=== PATIENT | male | born 1965 | race Caucasian/White ===

== ENCOUNTER 2018-07-15 13:20 | Emergency (ER) | payer OTHER ==
[2018-07-15 13:20] VITALS: BMI 25.1
[2018-07-15 13:48] VITALS: BP 123/79; PULSE 79; RESP 16; TEMP 98; O2SAT 98
--- NOTE | 2018-07-15 14:13 | C.PDOC ---
History Of Present Illness 52-year-old male, presents to the emergency department with complaints of left knee pain that he gradually developed a few hours ago after suddenly twisting his knee. Pain is localized and worse with ambulation. Patient denies deformity, weakness, or any other associated symptoms. No other complaints at this time. Time Seen by Provider: 07/15/18 13:32 Chief Complaint (Nursing): Lower Extremity Problem/Injury History Per: Patient History/Exam Limitations: no limitations Past Medical History Reviewed: Historical Data, Nursing Documentation, Vital Signs Vital Signs: Last Vital Signs Temp 98 F 07/15/18 13:32 Pulse 79 07/15/18 13:32 Resp 16 07/15/18 13:32 BP 123/79 07/15/18 13:32 Pulse Ox 98 07/15/18 13:32 Family History: States: No Known Family Hx - Social History Hx Alcohol Use: No Hx Substance Use: No Review Of Systems Constitutional: Negative for: Fever, Chills Gastrointestinal: Negative for: Nausea, Vomiting Musculoskeletal: Positive for: Leg Pain Neurological: Negative for: Weakness, Numbness Physical Exam - Physical Exam Appears: Well, Non-toxic, No Acute Distress Skin: Warm, Dry, No Rash, No Ecchymosis Extremity: Normal ROM (mild discomfort Left knee flexion. no neurovascular deficits.), No Calf Tenderness, No Deformity, No Swelling, Other (tenderness over lateral and posterior aspect of left knee) Neurological/Psych: Oriented x3, Normal Speech, Normal Motor, Normal Sensation, Normal Reflexes ED Course And Treatment O2 Sat by Pulse Oximetry: 98 Pulse Ox Interpretation: Normal (RA) - Other Rad Left knee X-Ray: Interpreted by Me, Viewed By Me Interpretation: (-) acute fx or dislocation Progress Note: On re-eval, pt is afebrile, hemodynamicaly stable. Non-toxic. AMbulatory in ED with stable gait. Left knee: mild tenderness lateral aspect knee. no deformity, no skin changes. FAROM, no neurovascular deficits. Left Knee xray (-) acute fx. Left knee brace applied. Pt advised to f/u with Ortho in 2-3 days for re-eavl. return to ED if any new changes. Disposition Counseled Patient/Family Regarding: Studies Performed, Diagnosis, Need For Followup, Rx Given - Disposition Referrals: Dedrick Lieberman MD [Staff Provider] - Disposition: HOME/ ROUTINE Disposition Time: 14:02 Condition: STABLE Additional Instructions: RICE-rest, ice, compression, elevation take pain medication as need Follow up with Orthopedist in23- days for re-evaluation, MRI of left knee as need return to ED if any worsening or new changes. Prescriptions: traMADol [Ultram] 50 mg PO BID #7 tab Instructions: Knee Sprain (DC) Forms: [employer] (Tongan) - Clinical Impression Clinical Impression: Knee sprain - Scribe Statement The provider has reviewed the documentation as recorded by the Scribe (Mikaela Bonds) All medical record entries made by the Scribe were at my direction and personally dictated by me. I have reviewed the chart and agree that the record accurately reflects my personal performance of the history, physical exam, medical decision making, and the department course for this patient. I have also personally directed, reviewed, and agree with the discharge instructions and disposition.
--- NOTE | 2018-07-15 17:23 | RAD ---
Date of service: 07/15/2018 PROCEDURE: Left Knee Radiographs. HISTORY: Pain. COMPARISON: None. FINDINGS: BONES: Normal. No fracture. JOINTS: Normal. Minimal spurring of the medial tibial spine. JOINT EFFUSION: Suspect trace joint effusion OTHER FINDINGS: None. IMPRESSION: Norm no evidence of acute displaced fracture nor dislocation. Suspect trace joint effusion
== END 2018-07-15 14:49 | disposition home or self-care (01) ==
LOC: C.ER 13:20
DX: S83.92XA Sprain of unspecified site of left knee, initial encounter (principal); X50.1XXA Overexertion from prolonged static or awkward postures, initial encounter